=== PATIENT | female | born 1995 | race American Indian/Alaskan Native ===

== ENCOUNTER 2018-06-10 03:34 | Outpatient (CLI) | payer MEDICAID ==
[2018-06-10] MEDS ORDERED: LACTATED RINGERS 1,000 ML ONE (04:50)
[2018-06-10] MEDS ORDERED: LACTATED RINGERS 1,000 ML IV ONE (04:54)
[2018-06-10 04:56] LABS: Bilirubin,Urine NEG (Negative); Blood,Urine NEG (Negative); Color,Urine Yellow (Yellow); Mucus,Urine FEW /HPF; Protein,Urine <15 mg/dL mg/dL (Negative); Urobilinogen,Urine < 2.0 mg/dL (<2.0)
[2018-06-10] MEDS ORDERED: SUBLIMAZE IV PRN (05:08)
--- NOTE | 2018-06-10 06:28 | Ultrasound Report ---
PROCEDURE: US OB >= 14 WK FETUS ADD GEST TECHNIQUE: Transabdominal imaging was obtained of baby Jhon and the diamnionic dichorionic twin pregnan cy. HISTORY: complete OB US include cervical length COMPARISONS: None FINDINGS: Baby A is in cephalic presentation. The amniotic fluid volume is grossly normal. The placenta is ante rior and is grade 1. The heart rate is 172 BPM. There are no gross anomalies involving the chor oid plexus, cisterna magnum, cerebellum or lateral ventricles. The stomach, kidneys, bladder, diaphra gm, four-chamber view the heart heart all appear normal. Only a longitudinal image of the spine was o btained. Axial images cannot be obtained. The estimated sonographic gestational age is 25 weeks 5 day s. The EDC is 09/18/2018. The estimated weight is 803 g. The cervical length is 3.0 cm. IMPRESSION: Cephalic presentation. Estimated gestational age is 25 weeks 5 days as described. No gross anom alies.. This document is electronically signed by Dilip Gregory MD., June 10 2018 06:25:32 AM ET
--- NOTE | 2018-06-10 06:30 | Ultrasound Report ---
PROCEDURE: US OB >= 14 WEEKS FETUS TECHNIQUE: Transabdominal imaging was obtained of a BB in the diamnionic dichorionic twin . HISTORY: complete OB US include cervical length COMPARISONS: None FINDINGS: Baby B is in cephalic presentation. The amniotic fluid volume is normal. The placenta is anterior and is grade 1. The heart rate is 156 BPM. The cervical length is 3.0 cm. The choroid plexus, cist veronica magna, cerebellum and lateral ventricles appear normal. There are no anomalies involving the sto mach, kidneys, bladder, diaphragm, four-chamber heart, three-vessel cord or umbilical cord insertion. The spine is not adequately seen for evaluation. The estimated gestational age is 24 weeks 6 days ba sed on sonographic criteria. The EDC is 09/24/2018 the estimated weight is 750 g. IMPRESSION: Baby B is in cephalic presentation as described. No anomalies.. This document is electronically signed by Dilip Gregory MD., June 10 2018 06:28:16 AM ET
[2018-06-10] MEDS ORDERED: MAGNESIUM SULFATE 4GM/100ML 4 GM/100 ML BAG IV ONE (06:43)
[2018-06-10] MEDS ORDERED: MAGNESIUM SULFATE 40GM/1000ML 40 GM/1,000 ML BAG IV SCH (07:00)
[2018-06-10] MEDS ORDERED: LACTATED RINGERS 1,000 ML IV SCH (07:00)
--- NOTE | 2018-06-10 09:06 | History and Physical Report ---
History of Present Illness Date of examination: 06/10/18 Date of admission: 06/10/18 Chief complaint: contractions History of present illness: This is a 23 yo at 25 weeks came in for contractions. Past History Past Medical History: no pertinent history Past Surgical History: no surgical history Family/Genetic History: none Social history: no significant social history, single. denies: smoking, alcohol abuse, prescription drug abuse - Obstetrical History : 1 Medications and Allergies Allergies Allergy/AdvReac Type Severity Reaction Status Date / Time No Known Allergies Allergy Verified 06/10/18 04:51 Active Meds: Active Medications Fentanyl (Sublimaze) 100 mcg IV Q2H PRN PRN Reason: pain Last Admin: 06/10/18 05:45 Dose: 100 mcg Documented by: Magnesium Sulfate (Magnesium Sulfate 40gm/1000ml) 40 gm in 1,000 mls @ 25 mls/hr IV DIRECT LI Last Admin: 06/10/18 08:00 Dose: 1 gm/hr, 25 mls/hr Documented by: Lactated Ringer's (Lactated Ringers) 1,000 mls @ 75 mls/hr IV DIRECT LI - Vital Signs Vital signs: Vital Signs Temp Pulse Resp BP 98.4 F 81 18 122/67 06/10/18 04:04 06/10/18 04:04 06/10/18 04:04 06/10/18 04:04 Temp Pulse Resp BP Pulse Ox 98.7 F 77 16 124/67 06/10/18 06:31 06/10/18 06:31 06/10/18 06:31 06/10/18 06:31 - Physical Exam Breasts: Positive: normal Cardiovascular: Regular rate, Normal S1 Lungs: Positive: Clear to auscultation, Normal air movement Abdomen: Positive: normal appearance, soft, normal bowel sounds. Negative: distention, tenderness, guarding Genitourinary (Female): Positive: normal external genitalia, normal perenium Vagina: Positive: normal moisture Uterus: Positive: normal size, normal contour Deep Tendon Reflex Grade: Normal +2 - Obstetrical FHR: category 1 Cervical Dilatation: 0 Uterine Contraction Pattern: Regular Uterine Tone Measurement Phase: Resting Results All other labs normal. Assessment and Plan A/P IUP 25 weeks, twins vertex/vertex s/p US cervix 3.1cm on mag- D/c mag as patient is closed FFn neg betamethasone x1 consult Niccu consult MFM [facility]- spoke with paradise will come today
--- NOTE | 2018-06-10 11:40 | Consultation ---
History of Present Illness Reason for consult: other (This is a 23 yo at 25.0 weeks came in for contractions. Patient was placed on MgSo4 and provided steriod for FLM Patient is followed by [facility] for [facility]/DI twins . Last [facility] visit was 06/04/18 cervical shortening of 2.60 cm and was placed on vaginal progesterone . In addition Twin A with EIF and Twin B EIF and mildlly elevated MVP . Today's assessment : Closed cervix with NEGATIVE FFN. MgSO4 was discontinued after SVE assessment with Negative FFN . Steriod of FLM x 1 was given . [facility] US cervical length assessment of 3.0 cm ) Past History Past Medical History: no pertinent history Past Surgical History: no surgical history Family/Genetic History: none - Obstetrical History : 1 Medications and Allergies Allergies Allergy/AdvReac Type Severity Reaction Status Date / Time No Known Allergies Allergy Verified 06/10/18 04:51 Active Meds: Active Medications Fentanyl (Sublimaze) 100 mcg IV Q2H PRN PRN Reason: pain Last Admin: 06/10/18 05:45 Dose: 100 mcg Documented by: Magnesium Sulfate (Magnesium Sulfate 40gm/1000ml) 40 gm in 1,000 mls @ 25 mls /hr IV DIRECT LI Last Admin: 06/10/18 08:00 Dose: 1 gm/hr, 25 mls/hr Documented by: Lactated Ringer's (Lactated Ringers) 1,000 mls @ 75 mls/hr IV DIRECT LI Review of Systems Constitutional: no fever Eyes: normal appearance Ears, nose, mouth and throat: ear pain (being treated for ear infection ) Cardiovascular: no shortness of breath Respiratory: no cough Breasts: deferred Gastrointestinal: no nausea, no vomiting Genitourinary: contractions (no contractions this afternoon ), no vaginal bleeding, no vaginal discharge, no leakage of fluid, no pelvic pain Integumentary: no rash Psychiatric: no anxiety - Vital Signs Vital signs: Vital Signs Temp Pulse Resp BP 98.4 F 81 18 122/67 06/10/18 04:04 06/10/18 04:04 06/10/18 04:04 06/10/18 04:04 Temp Pulse Resp BP Pulse Ox 98.7 F 77 16 124/67 06/10/18 06:31 06/10/18 06:31 06/10/18 06:31 06/10/18 06:31 - Physical Exam Breasts: Positive: deferred Cardiovascular: Regular rate Lungs: Positive: Normal air movement Abdomen: Positive: other (gravid ). Negative: tenderness, guarding Cervix: Positive: other (reported SVE by [facility] -closed and thick ) Uterus: Negative: tender Extremities: Positive: normal Deep Tendon Reflex Grade: Normal +2 - Obstetrical FHR: category 1 (for 25 weeks ) Uterine Contraction Monitor Mode: External Cervical Dilatation: 0 Cervical Effacement Percentage: 0 Uterine Contraction Pattern: Absent (during consultation) Results All other labs normal. Ultrasound: report reviewed (see chart for full report : cervical length of 3.0 cm ) Assessment and Plan A: TIUP @ 25.0 weeks per [facility] 09/23/18 [place]/DI twin gestation 06/04/18 [facility] assessment of cervical shortening of 2.60 cm 06/04/18 [facility] Twin B MVP was mildly elevated 06/04/18 [facility] Twin A and Twin B with EIF NIPT screened Negative 06/10/18 [facility] cervical length assessment of 3.0 cm with amniotic fluid volume normal x 2 06/10/18 [facility] Twin A EFW 803 gms 37% 06/10/18 [facility] Twin B EFW 750 gms 57% contractions early am of 06/10/18 was placed on MgSO4 and started on steroid for FLM Reported SVE per [facility]- Closed and thick FFN- NEGATIVE VTX/VTX P: 0900 Dr. Vila was notified that patient had mild cervical shortening of 2.60 NOT 2 cm dilation . With Negative FFN and reported SVE of closed and thick advised to discontinue MgSO4 however complete steriod for FLM Document negative cultures Consider discharge home with NO sxs of contractions , pelvic pressure, VB and no cervical change Patient to continue previously prescribed vaginal progesterone with close surveillance with [facility] and Primary OB Patient has a follow up appt with [facility] this Friday
[2018-06-10 12:27] VITALS: BP 117/65
== END 2018-06-10 15:00 | disposition home or self-care (01) ==
LOC: EDSTATUS 03:52 → TRG 03:59 → LD 05:23 → TRG 15:00
PROVIDERS: ATTEND Obstetrics & Gynecology
DX: O26.892 Other specified pregnancy related conditions, second trimester (principal); R10.9 Unspecified abdominal pain; H92.09 Otalgia, unspecified ear; O62.9 Abnormality of forces of labor, unspecified; O30.042 Twin pregnancy, dichorionic/diamniotic, second trimester; Z3A.25 25 weeks gestation of pregnancy
CPT/HCPCS: 36415; 76805; 76810; 81001; 82731; 87116; 96374; 96375; 96376; J3010; J3475; J7120; 96361; 96365; 96366; 96368

== ENCOUNTER 2018-06-18 18:28 | Outpatient (CLI) | payer MEDICAID ==
[2018-06-18 18:45] VITALS: BP 128/74
[2018-06-18] MEDS ORDERED: LACTATED RINGERS 500 ML IV ONE (18:45)
[2018-06-18 19:56] LABS: Bacteria,Urine 4+ /HPF (Negative); Bilirubin,Urine NEG (Negative); Blood,Urine NEG (Negative); Color,Urine Yellow (Yellow); Mucus,Urine FEW /HPF; Protein,Urine <15 mg/dL mg/dL (Negative); Urobilinogen,Urine < 2.0 mg/dL (<2.0); WBC,Urine < 1.0 /HPF (0.0-6.0)
== END 2018-06-18 22:10 | disposition home or self-care (01) ==
LOC: TRG 18:28
PROVIDERS: ATTEND Obstetrics & Gynecology
DX: O47.02 False labor before 37 completed weeks of gestation, second trimester (principal); Z3A.26 26 weeks gestation of pregnancy; Z87.891 Personal history of nicotine dependence
CPT/HCPCS: 59025; 81001; 96360; J7120

== ENCOUNTER 2018-07-09 11:20 | Outpatient (CLI) | payer MEDICAID ==
[2018-07-09] MEDS ORDERED: LACTATED RINGERS 500 ML IV ONE (11:41)
[2018-07-09 12:09] LABS: Bilirubin,Urine NEG (Negative); Blood,Urine NEG (Negative); Color,Urine Yellow (Yellow); Hyaline Casts,Urine 1 /LPF; Mucus,Urine FEW /HPF; Protein,Urine <15 mg/dL mg/dL (Negative); Urobilinogen,Urine < 2.0 mg/dL (<2.0); WBC,Urine < 1.0 /HPF (0.0-6.0)
[2018-07-09 13:16] VITALS: BP 118/57
[2018-07-09] MEDS ORDERED: CELESTONE SOLUSPAN IM SCH (14:00)
[2018-07-09] MEDS ORDERED: LACTATED RINGERS 1,000 ML ONE (14:50)
--- NOTE | 2018-07-09 17:22 | Ultrasound Report ---
PROCEDURE: US OB TRANSVAGINAL HISTORY: cervical lenght FINDINGS: Real-time ultrasound of the pelvis was performed with attention to the cervix. Cervical reza gth was 1.6 cm. IMPRESSION: Cervical length 1.6 cm This document is electronically signed by Ion Fontanez MD., July 09 2018 05:20:27 PM ET
--- NOTE | 2018-07-10 07:31 | Ultrasound Report ---
PROCEDURE: US OB LIMITED TECHNIQUE: Real-time limited sonographic examination was performed for evaluation of for each fetus with image documentation (1 or more fetuses). HISTORY: cervical length COMPARISONS: None . FINDINGS: The cervix measures 1.6 cm in length. There are twin pregnancies. Fetus A is in cephalic presentation. Heart rate is 160 bpm. Fetus B is in transverse presentation. Heart rate is 158 bpm. IMPRESSION: Cervix is 1.6 cm in length. This document is electronically signed by Kenn Dove MD., July 10 2018 07:28:23 AM ET
== END 2018-07-09 16:53 | disposition home or self-care (01) ==
LOC: TRG 11:20
PROVIDERS: ATTEND Obstetrics & Gynecology
DX: O47.03 False labor before 37 completed weeks of gestation, third trimester (principal); O32.2XX2 Maternal care for transverse and oblique lie, fetus 2; O30.003 Twin pregnancy, unspecified number of placenta and unspecified number of amniotic sacs, third trimester; Z3A.29 29 weeks gestation of pregnancy
CPT/HCPCS: 36415; 76815; 76817; 81001; 82731; 82962; 87086; 96360; J7120; J0702

== ENCOUNTER 2018-07-12 01:36 | Inpatient (IN) | payer MEDICAID ==
[2018-07-12] MEDS ORDERED: LACTATED RINGERS 500 ML IV ONE (02:25)
[2018-07-12] MEDS ORDERED: AMBIEN PO PRN (03:22)
[2018-07-12] MEDS ORDERED: MAGNESIUM SULFATE 4GM/100ML 4 GM/100 ML BAG IV ONE (03:38)
[2018-07-12] MEDS ORDERED: MAGNESIUM SULFATE 40GM/1000ML 40 GM/1,000 ML BAG IV SCH (04:00)
[2018-07-12 04:22] LABS: Basophils % (Auto) 0.2 % (0.0-1.8); Eosinophils # (Auto) 0.1 K/mm3 (0.0-0.4); Eosinophils % (Auto) 0.5 % (0.0-4.3); Hematocrit 32.3 % (30.3-42.9); Lymphocytes # (Auto) 2.7 K/mm3 (1.2-5.4); Lymphocytes % (Auto) 25.5 % (13.4-35.0); Mean Corpuscular HGB Conc 34 % (30-34); Mean Corpuscular Volume 93 fl (79-97); Monocytes % (Auto) 9.3 % (0.0-7.3); Platelet Count 214 K/mm3 (140-440); Red Blood Count 3.47 M/mm3 (3.65-5.03)
[2018-07-12] MEDS: CELESTONE SOLUSPAN IM SCH (04:23)
--- NOTE | 2018-07-12 10:09 | History and Physical Report ---
History of Present Illness Date of examination: 07/12/18 Date of admission: 07/12/18 03:58 Chief complaint: Contractions History of present illness: Pt is a 23 year old with a twin IUP at 29 weeks. Pt states she has had issues with PTL and was admitted at [facility] for monitoring in April. records are not available for review. Per the patient her cervix was closed on the 09 of July, but she is now reported to be 3 cm Past History Past Medical History: no pertinent history Past Surgical History: no surgical history - Obstetrical History Expected Date of Delivery: 09/21/18 Actual Gestation: 29 Week(s) 6 Day(s) : 1 Medications and Allergies Allergies Allergy/AdvReac Type Severity Reaction Status Date / Time No Known Allergies Allergy Verified 06/10/18 04:51 Active Meds: Active Medications Betamethasone Acet/Betameth SodPhos (Celestone Soluspan) 12 mg IM Q24H LI Stop: 07/13/18 04:01 Last Admin: 07/12/18 04:23 Dose: 12 mg Documented by: Magnesium Sulfate (Magnesium Sulfate 40gm/1000ml) 40 gm in 1,000 mls @ 50 mls/hr IV DIRECT LI Last Admin: 07/12/18 05:21 Dose: 2 gm/hr, 50 mls/hr Documented by: Multivitamins/Iron/Calcium ( Vitamin) 1 each PO QDAY LI Zolpidem Tartrate (Ambien) 10 mg PO QHS PRN PRN Reason: Insomnia Review of Systems All systems: negative Genitourinary: contractions - Vital Signs Vital signs: Vital Signs Pulse BP 86 115/70 07/12/18 02:12 07/12/18 02:12 Temp Pulse Resp BP Pulse Ox 97.6 F 115 H 20 92/51 98 07/12/18 08:29 07/12/18 10:01 07/12/18 08:29 07/12/18 09:57 07/12/18 10:01 - Physical Exam Breasts: Cardiovascular: Regular rate, Normal S1, Normal S2 Abdomen: Positive: normal appearance, soft, normal bowel sounds. Negative: distention, tenderness Genitourinary (Female): Positive: normal external genitalia Vulva: both: normal Vagina: Positive: normal moisture. Negative: discharge Cervix: Negative: lesion, discharge Uterus: Positive: normal size, normal contour Adnexa: both: normal Anus/Rectum: Positive: normal perianal skin, heme negative. Negative: rectal mass, hemorrhoids Extremities: Deep Tendon Reflex Grade: Normal +2 - Obstetrical FHR: auscultation normal Cervical Dilatation: 3 Cervical Effacement Percentage: 60 station: 2 Uterine Contraction Pattern: Absent Uterine Contraction Intensity: Mild Results Result Diagrams: 07/12/18 03:56 Abnormal lab results 07/12/18 Range/Units 03:56 RBC 3.47 L (3.65-5.03) M/mm3 RDW 13.0 L (13.2-15.2) % [place] % (Auto) 9.3 H (0.0-7.3) % [place] # 1.0 H (0.0-0.8) K/mm3 All other labs normal. Assessment and Plan Twin IUP at 29 weeks. Will start magnesium and order steroids. Will order ultrasound to check for position of fetuses.
[2018-07-12] MEDS: PRENATAL VITAMIN PO SCH (10:25)
--- NOTE | 2018-07-12 13:37 | Ultrasound Report ---
PROCEDURE: US OB LIMITED HISTORY: positon for twin FINDINGS: Real-time ultrasound of the pelvis was performed with attention to the gravid uterus. There is a twin gestation. Twin A is posterior to the cervix and lies in cephalic lie. Twin A has fet al cardiac activity of 137 beats per minute. Twin B is in breech lie and has cardiac activity of 123 bpm. IMPRESSION: Live twin gestation This document is electronically signed by Ion Fontanez MD., July 12 2018 01:34:51 PM ET
[2018-07-12] MEDS ORDERED: LACTATED RINGERS 1,000 ML ONE (14:50)
[2018-07-12] MEDS ORDERED: LACTATED RINGERS 1,000 ML IV SCH (19:00)
[2018-07-13] MEDS ORDERED: LACTATED RINGERS 1,000 ML ONE (01:20)
[2018-07-13] MEDS: CELESTONE SOLUSPAN IM SCH (04:48)
--- NOTE | 2018-07-13 08:25 | Progress Note ---
Assessment and Plan - Patient Problems (1) labor Current Visit: Yes Status: Acute Plan to address problem: discontinue magnesium (2) Twin Current Visit: Yes Status: Acute Subjective - Subjective Date of service: 07/13/18 Interval history: Patient admitted for labor and twin gestation. She is s/p steroids and 24 hours of magnesium. She is currently without complaints. Patient reports: no new complaints, no loss of fluid, no contractions Objective - Vital Signs Vital Signs: Vital Signs - 12hr 07/12/18 07/12/18 07/12/18 20:29 22:29 23:23 Temperature Pulse Rate 104 H 88 93 H Respiratory Rate Blood Pressure 118/56 120/55 108/50 Blood Pressure [Right] O2 Sat by Pulse Oximetry 07/13/18 07/13/18 07/13/18 01:28 01:31 04:39 Temperature 98.2 F Pulse Rate 93 H 105 H Respiratory 18 Rate Blood Pressure 119/52 119/56 Blood Pressure 119/52 [Right] O2 Sat by Pulse Oximetry 07/13/18 07/13/18 07/13/18 05:30 05:48 05:53 Temperature 96.9 F L Pulse Rate 82 99 H Respiratory Rate Blood Pressure 106/58 Blood Pressure [Right] O2 Sat by Pulse 99 Oximetry 07/13/18 07/13/18 07/13/18 05:58 06:03 06:08 Temperature Pulse Rate 87 92 H 99 H Respiratory Rate Blood Pressure Blood Pressure [Right] O2 Sat by Pulse 99 100 99 Oximetry 07/13/18 07/13/18 07/13/18 06:13 06:18 06:23 Temperature Pulse Rate 90 90 81 Respiratory Rate Blood Pressure Blood Pressure [Right] O2 Sat by Pulse 99 99 100 Oximetry 07/13/18 07/13/18 07/13/18 06:28 06:33 06:38 Temperature Pulse Rate 102 H 75 77 Respiratory Rate Blood Pressure Blood Pressure [Right] O2 Sat by Pulse 100 98 97 Oximetry 07/13/18 07/13/18 07/13/18 06:43 06:48 06:53 Temperature Pulse Rate 83 82 83 Respiratory Rate Blood Pressure 95/54 Blood Pressure [Right] O2 Sat by Pulse 97 97 97 Oximetry 07/13/18 07/13/18 07/13/18 06:58 07:03 07:08 Temperature Pulse Rate 98 H 81 78 Respiratory Rate Blood Pressure Blood Pressure [Right] O2 Sat by Pulse 98 97 98 Oximetry 07/13/18 07/13/18 07/13/18 07:13 07:18 07:23 Temperature Pulse Rate 84 85 85 Respiratory Rate Blood Pressure Blood Pressure [Right] O2 Sat by Pulse 98 98 98 Oximetry 07/13/18 07/13/18 07/13/18 07:28 07:33 07:38 Temperature Pulse Rate 94 H 88 87 Respiratory Rate Blood Pressure Blood Pressure [Right] O2 Sat by Pulse 98 98 97 Oximetry 07/13/18 07/13/18 07/13/18 07:43 07:48 07:49 Temperature Pulse Rate 88 99 H 97 H Respiratory Rate Blood Pressure 109/66 Blood Pressure [Right] O2 Sat by Pulse 97 99 Oximetry 07/13/18 07/13/18 07/13/18 07:53 07:58 08:03 Temperature Pulse Rate 97 H 103 H 85 Respiratory Rate Blood Pressure Blood Pressure [Right] O2 Sat by Pulse 99 99 99 Oximetry 07/13/18 07/13/18 07/13/18 08:08 08:13 08:18 Temperature Pulse Rate 86 88 91 H Respiratory Rate Blood Pressure Blood Pressure [Right] O2 Sat by Pulse 98 98 98 Oximetry - Labs Labs: Abnormal Labs 07/12/18 07/12/18 03:56 12:32 RBC 3.47 L RDW 13.0 L [place] % (Auto) 9.3 H [place] # 1.0 H Magnesium 4.40 H Laboratory Results - last 24 hr 07/12/18 07/12/18 07/12/18 03:56 03:56 12:32 Magnesium 4.40 H RPR Nonreactive Blood Type O POSITIVE Antibody Screen Negative
[2018-07-13] MEDS: PROCARDIA*For Tocolysis only PO SCH ×3 (10:35→21:50)
[2018-07-13] MEDS: PRENATAL VITAMIN PO SCH (10:36)
--- NOTE | 2018-07-13 15:16 | Consultation ---
Consult Note - Parent Education I met with parent(s) and discussed the following:: Need for NICU admission, Poss ible need for intubation and surfactant or other resp support, Temperature regulation, Head ultrasounds to evaluate IVH, Eye exams for ROP screening, Possible need for IV fluids/TPN and IV antibiotics, Possible need for umbilical lines, Importance of providing breast milk & encouraged pumping aft delivery, Donor breast milk if baby meets criteria after , Slow feeding advancement and monitoring of tolerance. NG/OG feeds, Data for survival & survival without significant co-morbidities Parent(s) demonstrated understanding of all the information:: Yes Additional Comment: 23 year old with twin gestation at 30 weeks admitted with suspected labor, s/p Mag and steroids Assessment and Plan - Assessment Gestation:: 30 (weeks) Baby's gender: Female (X2) - Plan Plan: Agree with Mag & steroids Will attend delivery Please call NICU with questions
[2018-07-14 08:04] VITALS: BP 106/54
--- NOTE | 2018-07-14 08:32 | Progress Note ---
Assessment and Plan - Patient Problems (1) labor Current Visit: Yes Status: Acute Plan to address problem: remains clinically stable will continue with outpatient management bedrest at home (2) Twin Current Visit: Yes Status: Acute Subjective - Subjective Date of service: 07/14/18 Interval history: Patient has intermittent pressure. Contractions are irregular. Pain is improved. Denies leakage of fluid. Patient reports: no new complaints, no loss of fluid, no contractions Objective - Vital Signs Vital Signs: Vital Signs - 12hr 07/13/18 07/13/18 07/14/18 23:22 23:23 04:06 Temperature 97.7 F 98.0 F Pulse Rate 80 80 84 Respiratory 18 18 Rate Blood Pressure 113/54 Blood Pressure 113/54 104/51 [Right] O2 Sat by Pulse 98 Oximetry 07/14/18 07/14/18 04:07 08:03 Temperature Pulse Rate 84 111 H Respiratory Rate Blood Pressure 104/51 106/54 Blood Pressure [Right] O2 Sat by Pulse Oximetry - Labs Labs: Abnormal Labs 07/12/18 07/12/18 03:56 12:32 RBC 3.47 L RDW 13.0 L [place] % (Auto) 9.3 H [place] # 1.0 H Magnesium 4.40 H
--- NOTE | 2018-07-14 08:34 | Discharge Summary ---
Providers - Providers Date of Admission: 07/13/18 17:09 Date of discharge: 07/14/18 Attending physician: JAAYSHREE GRECO MD Primary care physician: JAYASHREE GRECO MD Hospitalization Reason for admission: labor Discharge diagnosis: other Hospital course: Patient admitted for labor with twin gestation. She received magnesium and steroids. Had stabilization of cervix of 3cm. Patient discharged home on bedrest Condition at discharge: Good Disposition: DC-[id number] TO HOME OR SELFCARE - Discharge Diagnoses (1) labor Status: Acute (2) Twin Status: Acute Plan - Provider Discharge Summary Activity: no sex for 6 weeks, no heavy lifting 4 weeks, no strenuous exercise Diet: routine Instructions: routine Additional instructions: [] Smoking cessation referral if applicable(refer to patient education folder for contact #) [] Refer to [facility] Booklet Call your doctor immediately for: * Fever > 100.5 * Heavy vaginal bleeding ( >1 pad per hour) * Severe persistent headache * Shortness of breath * Reddened, hot, painful area to leg or breast * schedule followup in one week - Follow up plan Follow up: JAYASHREE GRECO MD [Primary Care Provider] - 7 Days
== END 2018-07-14 11:00 | disposition home or self-care (01) | DRG 782 ==
LOC: TRG 01:36 → LD 03:58 → TRG 03:58 → OBSVTOIN 07-13 17:09
PROVIDERS: ADMIT Obstetrics & Gynecology; ATTEND Obstetrics & Gynecology
DX: O30.003 Twin pregnancy, unspecified number of placenta and unspecified number of amniotic sacs, third trimester (principal); O60.03 Preterm labor without delivery, third trimester; Z3A.29 29 weeks gestation of pregnancy
CPT/HCPCS: 36415; 76815; 83735; 85025; 86592; 86850; 86900; 86901; G0378; J0702; J3475; J7120

== ENCOUNTER 2018-07-27 12:46 | Outpatient (CLI) | payer MEDICAID ==
[2018-07-27 13:32] VITALS: BP 114/78
== END 2018-07-27 14:07 | disposition home or self-care (01) ==
LOC: TRG 12:46
PROVIDERS: ATTEND Obstetrics & Gynecology
DX: O47.03 False labor before 37 completed weeks of gestation, third trimester (principal); Z3A.32 32 weeks gestation of pregnancy
CPT/HCPCS: 59025

== ENCOUNTER 2018-08-09 07:12 | Outpatient (CLI) | payer MEDICAID ==
[2018-08-09] MEDS ORDERED: LACTATED RINGERS 1,000 ML IV ONE (09:37)
[2018-08-09 11:38] VITALS: BP 106/72
== END 2018-08-09 11:49 | disposition home or self-care (01) ==
LOC: TRG 07:12
PROVIDERS: ATTEND Obstetrics & Gynecology
DX: O62.9 Abnormality of forces of labor, unspecified (principal); O26.893 Other specified pregnancy related conditions, third trimester; O30.003 Twin pregnancy, unspecified number of placenta and unspecified number of amniotic sacs, third trimester; Z3A.33 33 weeks gestation of pregnancy
CPT/HCPCS: 59025; 96360; J7120

== ENCOUNTER 2018-08-15 16:48 | Inpatient (IN) | payer MEDICAID ==
[2018-08-15] MEDS ORDERED: MAGNESIUM SULFATE 4GM/100ML 4 GM/100 ML BAG IV ONE (18:07)
[2018-08-15] MEDS ORDERED: MAGNESIUM SULFATE 40GM/1000ML 40 GM/1,000 ML BAG IV ONE (18:09)
[2018-08-15] MEDS ORDERED: MAGNESIUM SULFATE 4GM/100ML 4 GM/100 ML BAG IV SCH (18:30)
[2018-08-15] MEDS ORDERED: TYLENOL PO PRN (18:31)
[2018-08-15] MEDS ORDERED: COLACE PO PRN (18:31)
[2018-08-15] MEDS ORDERED: CELESTONE SOLUSPAN IM SCH ×2 (19:00)
[2018-08-15] MEDS ORDERED: MAGNESIUM SULFATE 40GM/1000ML 40 GM/1,000 ML BAG IV SCH ×2 (19:00)
[2018-08-15] MEDS ORDERED: LACTATED RINGERS 1,000 ML IV SCH (19:00)
[2018-08-15] MEDS ORDERED: AMPICILLIN/NS 2 GM/100 ML 2 GM/100 ML BAG IV ONE (20:15)
[2018-08-15] MEDS ORDERED: STADOL IV PRN (20:15)
--- NOTE | 2018-08-15 21:18 | Ultrasound Report ---
PROCEDURE: US OB LIMITED TECHNIQUE: Real-time limited sonographic examination was performed for evaluation of position and amniotic fluid index for each fetus with image documentation (1 or more fetuses). HISTORY: KEESHA and presentation COMPARISONS: None . FINDINGS: Twin intrauterine gestation is identified FETUS A: Position: Cephalic . Amniotic fluid volume: Normal. Largest vertical pocket is 2.1 cm. Heart rate and rhythm: 150 BPM, Regular . FETUS B: Position: Transverse with head to maternal left . Amniotic fluid volume: Normal. Largest vertical pocket is 4.7 cm. Heart rate and rhythm: 155 BPM, Regular . IMPRESSION: Twin intrauterine gestation as described above. This document is electronically signed by Cedric Del Rio MD., Aug 15 2018 09:15:51 PM ET
--- NOTE | 2018-08-15 21:18 | Ultrasound Report ---
PROCEDURE: US OB BPP WO NON-STRESS TECHNIQUE: Sonographic evaluation for breathing, movement, tone, and amniotic flui d volume was performed. HISTORY: labor with twins COMPARISONS: None . FINDINGS: FETUS A: Amniotic fluid volume Normal-score 2. At least one vertical pocket >2 cm or more in vertical axis . breathing: Normal-score 2 . movement: Normal-score 2 . tone: Normal-score 2 . Score: 8 of 8 . IMPRESSION: Fetus A: Normal biophysical profile . This document is electronically signed by Cedric Del Rio MD., Aug 15 2018 09:17:01 PM ET
--- NOTE | 2018-08-15 21:20 | Ultrasound Report ---
PROCEDURE: US OB BPP EA ADD EXAM TECHNIQUE: Sonographic evaluation for breathing, movement, tone, and amniotic flui d volume was performed. HISTORY: ptl COMPARISONS: None . FINDINGS: FETUS B: Amniotic fluid volume Normal-score 2. At least one vertical pocket >2 cm or more in vertical axis . breathing: Normal-score 2 . movement: Normal-score 2 . tone: Normal-score 2 . Score: 8 of 8 . IMPRESSION: Fetus B: Normal biophysical profile . This document is electronically signed by Cedric Del Rio MD., Aug 15 2018 09:18:03 PM ET
--- NOTE | 2018-08-15 23:35 | History and Physical Report ---
History of Present Illness Date of examination: 08/15/18 Date of admission: 08/15/18 18:47 Chief complaint: contractions History of present illness: This is a 23 yo G 1 P 0 at 34+3 weeks here for contractions. She has been admitted several weeks ago for labor noted to be stable and discharged after mag and steroids. She c/o contractions and noted to be 4cm from 3cm several weeks ago and fariha. She has been seen by M following for mono di twins. Presentations vertex, breech. Past History Past Medical History: no pertinent history Past Surgical History: no surgical history Family/Genetic History: none Social history: . denies: smoking, alcohol abuse, prescription drug abuse - Obstetrical History Expected Date of Delivery: 09/21/18 Actual Gestation: 34 Week(s) 6 Day(s) : 1 Para: 0 Hx # Term Pregnancies: 0 Number of Pregnancies: 0 Spontaneous Abortions: 0 Induced : 0 Number of Living Children: 0 Medications and Allergies Allergies Allergy/AdvReac Type Severity Reaction Status Date / Time Latex, Natural Rubber AdvReac Unknown Verified 07/27/18 13:53 Active Meds: Active Medications Acetaminophen (Tylenol) 650 mg PO Q4H PRN PRN Reason: Pain MILD(1-3)/Fever >100.5/PACHECO Betamethasone Acet/Betameth SodPhos (Celestone Soluspan) 12 mg IM Q24H LI Stop: 08/16/18 19:01 Butorphanol Tartrate (Stadol) 2 mg IV Q2H PRN PRN Reason: Labor Pain Docusate Sodium (Colace) 100 mg PO Q12H PRN PRN Reason: Constipation Magnesium Sulfate (Magnesium Sulfate 40gm/1000ml) 40 gm in 1,000 mls @ 50 mls/hr IV DIRECT LI Last Admin: 08/15/18 18:57 Dose: 2 gm/hr, 50 mls/hr Documented by: Lactated Ringer's (Lactated Ringers) 1,000 mls @ 125 mls/hr IV DIRECT LI Last Admin: 08/15/18 18:57 Dose: 75 mls/hr Documented by: Magnesium Sulfate (Magnesium Sulfate 4gm/100ml) 4 gm in 100 mls @ 400 mls/hr IV ONCE LI Ampicillin Sodium (Ampicillin/Ns 1 Gm/50 Ml) 1 gm in 50 mls @ 100 mls/hr IV Q4HR LI; Protocol Multivitamins/Iron/Calcium ( Vitamin) 1 each PO QDAY LI Review of Systems All systems: negative Genitourinary: contractions - Vital Signs Vital signs: Vital Signs Pulse BP 85 120/90 08/15/18 17:28 08/15/18 17:28 Temp Pulse Resp BP Pulse Ox 80 121/72 98 08/15/18 23:03 08/15/18 23:03 08/15/18 21:40 - Physical Exam Breasts: Positive: normal Cardiovascular: Regular rate, Normal S1 Lungs: Positive: Clear to auscultation, Normal air movement Abdomen: Positive: normal appearance, soft, normal bowel sounds. Negative: distention, tenderness, guarding Genitourinary (Female): Positive: normal external genitalia, normal perenium Vulva: both: normal Vagina: Positive: normal moisture Uterus: Positive: normal size Anus/Rectum: Positive: normal perianal skin Extremities: Positive: normal - Obstetrical FHR: category 1 Cervical Dilatation: 4 Cervical Effacement Percentage: 60 station: -2 Uterine Contraction Pattern: Irregular Uterine Tone Measurement Phase: Contraction Uterine Contraction Intensity: Mild Results All other labs normal. Ultrasound: pending Assessment and Plan A/P IUP 34+3 weeks [place] di twins vertex, breech spoke with MFM recommended IVF observation d/c mag if active labor MFM recommends delivery close monitor of fetuses and maternal status
[2018-08-15] MEDS ORDERED: REGLAN ONE (23:38)
[2018-08-15] MEDS ORDERED: BICITRA ONE (23:38)
[2018-08-15] MEDS ORDERED: PEPCID IV ONE (23:39)
[2018-08-15] MEDS ORDERED: PITOCin/NS 20 UNIT/1000ML DRIP 20,000 MILLIUNITS/1,000 ML BAG IV ONE (23:39)
[2018-08-15] MEDS ORDERED: DIPRIVAN 10 MG/ML IV ONE (23:45)
[2018-08-15] MEDS ORDERED: WATER FOR IRRIG STERILE IR ONE (23:48)
[2018-08-15] MEDS ORDERED: NACL 0.9% IR ONE (23:48)
[2018-08-15] MEDS ORDERED: METHERGINE IM ONE ×2 (23:56)
[2018-08-15] MEDS ORDERED: SUBLIMAZE ONE (23:58)
[2018-08-16] MEDS ORDERED: AMPICILLIN/NS 1 GM/50 ML 1 GM/50 ML BAG IV SCH
[2018-08-16] MEDS ORDERED: SUBLIMAZE ONE (00:15)
[2018-08-16] MEDS ORDERED: PITOCin/NS 20 UNIT/1000ML DRIP 20,000 MILLIUNITS/1,000 ML BAG IV ONE (00:33)
[2018-08-16] MEDS ORDERED: ZOFRAN IV PRN ×2 (00:43→00:55)
[2018-08-16] MEDS ORDERED: ANUCORT-HC PR PRN (00:43)
[2018-08-16] MEDS ORDERED: PEPCID IV ONE (00:43)
[2018-08-16] MEDS ORDERED: TUCKS PAD TP PRN (00:43)
[2018-08-16] MEDS ORDERED: MORPHINE IV PRN ×2 (00:43)
[2018-08-16] MEDS ORDERED: NARCAN 0.4 MG/1 ML IV PRN ×2 (00:43→00:55)
[2018-08-16] MEDS ORDERED: LANSINOH TP PRN (00:43)
[2018-08-16] MEDS ORDERED: TORADOL IV PRN ×3 (00:43→00:55)
[2018-08-16] MEDS ORDERED: PHENERGAN PR PRN (00:43)
[2018-08-16] MEDS ORDERED: MYLICON PO PRN (00:43)
[2018-08-16] MEDS ORDERED: SENOKOT PO PRN (00:43)
[2018-08-16] MEDS ORDERED: BICITRA PO ONE (00:43)
[2018-08-16] MEDS ORDERED: NORCO 5/325 PO PRN (00:43)
[2018-08-16] MEDS ORDERED: REGLAN IV ONE (00:43)
[2018-08-16] MEDS ORDERED: MILK OF MAGNESIA PO PRN (00:43)
[2018-08-16] MEDS ORDERED: ZOFRAN ONE (00:45)
--- NOTE | 2018-08-16 00:50 | Event Note ---
Date: 08/16/18 Patient was admitted for labor and upon observing monitor there was a bradycardia epidsode of . At this time we called for emergency csec. Discussed r/b/ a which include bleeding infection, damage to pelvic and non pelvic organs risk of hysterectomy and
--- NOTE | 2018-08-16 00:52 | Procedure Note ---
OB Delivery Note - Delivery Date of Delivery: 08/16/18 Surgeon: JAYASHREE GRECO Estimated blood loss: other (1200cc) - Section Preop diagnosis: nonreassuring FHR tracing Postop diagnosis: same section procedure: section, primary low transverse Disposition: PACU Complications: none Narrative: see op note - A at 1 minute: 8 at 5 minutes: 9 Infant Gender: Female B at 1 minute: 7 at 5 minutes: 9 Infant Gender: Female
--- NOTE | 2018-08-16 00:54 | Post Anesthesia Evaluation ---
- Post Anesthesia Evaluation Patient Participated: Yes Airway Patent: Yes Stable Respiratory Function: Yes Nausea/Vomiting: No Temp > 96.8F: Yes Pain Manageable: Yes Adequeate Hydration: Yes Anesthesia Complications: No Block Receding Appropriately: Not Applicable Patient on Ventilator: No Other Comments: Explained to patient expected postoperative course from major abdominal surgery. Patient states understanding that OBGYN will manage pain control on floor. Patient appears comfortable and in no acute distress. VSS.
[2018-08-16] MEDS ORDERED: DEMEROL IV PRN (00:55)
[2018-08-16] MEDS ORDERED: LACTATED RINGERS 1,000 ML IV SCH (01:00)
[2018-08-16] MEDS: DILAUDID IV PRN ×2 (01:00→01:35)
[2018-08-16] MEDS ORDERED: PITOCin/NS 20 UNIT/1000ML DRIP 20 UNITS/1,000 ML BAG IV SCH ×2 (01:00)
[2018-08-16] MEDS ORDERED: SODIUM CHLORIDE FLUSH SYRINGE 10 ML IV PRN (01:00)
[2018-08-16] MEDS ORDERED: ANCEF/STERILE WATER 2 GM/20 ML 2 GM/20 ML SYRINGE IV NR (01:00)
--- NOTE | 2018-08-16 01:00 | Operative Report ---
Operative Report Operative Report: Date of procedure: August 15, 2018 Preoperative diagnosis: 1) IUP at 34+6 weeks 2) Monodi twins 3) labor 4) NRFHT Postoperative diagnosis: Same + nucahal cord on twin B Procedure: 1) Primary Surgeon:Susie Vila MD Anesthesia: General Findings: 1) Viable female , Apgars 8 and 9, weight 2028g in cephalic presentation 2) Viable female , Apgars 7 and 9. weight 2031g in breech presentation 2) Normal-appearing uterus ovaries and tubes Estimated blood loss: 1200 mL IV fluids: 1500 cc Urine output: 200 mL, clear at the end of the procedure Drains: [place] to gravity Specimens: Placenta to pathology Complications: None. Counts correct x 3 Disposition: Stable to PACU Indication for procedure: Patient is a 23-year-old at 34+6 weeks 3 days with mono di twins. Patient came in with contractions and assess for labor. At the time she was 5cm. Upon observation of monitoring twin had a kvng epidosde and emergency csec was promptly called Operation in detail: After the risks, benefits, alternatives and complications were explained to the patient she gave informed consent for the procedure. She was subsequently taken to the operating room where regional anesthesia was noted to be adequate. She was subsequently placed in the dorsal supine position with leftward tilt and prepped and draped in a normal sterile fashion. heart tones were noted to be in the 170s prior to incision for both twins . A timeout was performed. A Pfannenstiel skin incision was made with the knife and carried down to the layer of the fascia with the Bovie. The fascia was incised in the midline and the fascial incision was extended bilaterally with the Bovie. Attention was then turned to the superior aspect of the incision which was grasped with two Kochers, tented up, and dissected off the rectus muscles. Attention was then turned to the inferior aspect of the incision which was grasped with two Kochers, tented up and dissected off the rectus muscles. The rectus muscles were then in the midline and partially transected for adequate visualization. The peritoneum was then entered bluntly. The peritoneal incision was extended with good visualization of the bladder. The peritoneal incision was then stretched. The bladder blade was placed. The vesicouterine peritoneum was grasped with smooth pickups and incised with Metzenbaum scissors. Metzenbaum scissors were used to extend the incision bilaterally. The bladder flap was then created digitally and the bladder blade was replaced. A transverse incision was made in the lower uterine segment with a knife and extended bilaterally with the bandage scissors. The head was delivered without difficulty followed by shoulders and body. was bulb suctioned at delivery. The cord was clamped and cut and the was handed to NICU staff in attendance. Twin B delivered after the arom clear and double breech grasped and delivered and easily delivered. Cord blood was collected. The placenta was then delivered manually. The uterus was then exteriorized and cleared of all clots and debris. The hysterotomy was then reapproximated with 0 Vicryl in a running locked fashion. A second layer of the same suture was used in imbricating fashion. Additional [id number] 0 Vicryl were used to obtain hemostasis. The hysterotomy was inspected and hemostasis was noted. The uterus was returned to the peritoneal cavity and the gutters were irrigated and cleared of all clots and debris. The hysterotomy was again inspected and noted to be hemostatic. Surgicel was placed over the hysterotomy. . The peritoneum was reapproximated with 2-0 Vicryl in a running fashion incorporating the rectus muscles. The fascia was reapproximated with 0 Vicryl in a running fashion. The subcutaneous tissue was reapproximated with 3-0 Vicryl in a running fashion The skin was reapproximated with 4-0 Vicryl in a subcuticular fashion. The incision was then covered with steri strips and a pressure dressing. The procedure was then ended. The patient tolerated the procedure well and was taken to the PACU in stable condition. All instrument, lap, and needle counts were correct 3.
[2018-08-16 02:34] LABS: Basophils % (Auto) 0.1 % (0.0-1.8); Hematocrit 33.7 % (30.3-42.9); Hemoglobin 11.2 gm/dl (10.1-14.3); Lymphocytes # (Auto) 1.1 K/mm3 (1.2-5.4); Lymphocytes % (Auto) 9.6 % (13.4-35.0); Mean Corpuscular HGB Conc 33 % (30-34); Mean Corpuscular Volume 94 fl (79-97); Monocytes # (Auto) 0.2 K/mm3 (0.0-0.8); Monocytes % (Auto) 1.8 % (0.0-7.3); Platelet Count 196 K/mm3 (140-440); Red Blood Count 3.58 M/mm3 (3.65-5.03); Red Cell Distribution Width 13.3 % (13.2-15.2)
[2018-08-16] MEDS: PERCOCET 5/325 PO PRN ×2 (03:38→17:54)
[2018-08-16] MEDS ORDERED: D5LR 1,000 ML IV SCH (04:00)
[2018-08-16] MEDS ORDERED: PRENATAL VITAMIN PO SCH (10:00)
[2018-08-16] MEDS: FEOSOL PO SCH (10:15)
[2018-08-16] MEDS: PRENATAL VITAMIN PO SCH (10:15)
[2018-08-16 15:51] LABS: Hematocrit 29.8 % (30.3-42.9); Hemoglobin 9.8 gm/dl (10.1-14.3)
[2018-08-17] MEDS ORDERED: M-M-R II VACCINE SUB-Q ONE (00:44)
[2018-08-17] MEDS: PERCOCET 5/325 PO PRN ×3 (05:23→22:57)
[2018-08-17] MEDS: IBUPROFEN PO PRN ×2 (05:24→22:04)
[2018-08-17] MEDS ORDERED: BOOSTRIX IM ONE (06:00)
--- NOTE | 2018-08-17 09:19 | Progress Note ---
Assessment and Plan A/P POD1 csec for malpresentation of mono di twins doing well routine post op care Subjective - Subjective Date of service: 08/17/18 Principal diagnosis: primary csec for twin cephalic/breech Interval history: This is a 23 yo G 1 P 0 at 34+3 weeks here for contractions. She has been admitted several weeks ago for labor noted to be stable and discharged after mag and steroids. She c/o contractions and noted to be 4cm from 3cm several weeks ago and fariha. She has been seen by MFM following for mono di twins. Presentations vertex, breech. Patient reports: appetite normal, voiding normally, pain well controlled, flatus, ambulating normally [place]: doing well, in NICU (x2) Objective - Vital Signs Latest vital signs: Vital Signs Temp Pulse Resp BP Pulse Ox 08/17/18 01:15 98.0 F 82 20 104/56 97 08/16/18 16:21 98.4 F 89 20 114/79 98 08/16/18 13:02 97.8 F 89 20 105/75 99 Intake and Output 08/16/18 08/17/18 08/17/18 23:59 07:59 15:59 Intake Total 240 Output Total 500 Balance -500 240 Intake: Oral 240 Output: Urine 500 Void 500 Other: Total, Intake Amount 240 Total, Output Amount 500 # Voids Void 1 1 - Exam Breasts: Present: normal Cardiovascular: Present: Regular rate, Normal S1 Lungs: Present: Clear to auscultation, Normal air movement Abdomen: Present: normal appearance, soft, normal bowel sounds. Absent: distention, tenderness, guarding Uterus: Present: normal, firm, fundal height below umbilicus. Absent: bogginess, tenderness Extremities: Present: normal Deep Tendon Reflex Grade: Normal +2 Incision: Present: normal, dry, intact - Labs Labs: Abnormal lab results 08/16/18 Range/Units 14:57 Hgb 9.8 L (10.1-14.3) gm/dl Hct 29.8 L (30.3-42.9) %
[2018-08-17] MEDS: FEOSOL PO SCH (10:59)
[2018-08-17] MEDS: PRENATAL VITAMIN PO SCH (10:59)
[2018-08-18] MEDS: IBUPROFEN PO PRN ×2 (08:27→17:22)
--- NOTE | 2018-08-18 08:27 | Progress Note ---
Assessment and Plan A: POD# 2 s/p primary section at 34 wks secondary to active labor, malpresentation, mono-di twins P: Routine postoperative care. Anticipate discharge tomorrow. Subjective - Subjective Date of service: 08/18/18 Principal diagnosis: primary csec for twin cephalic/breech Interval history: Pt without complaints. Patient reports: appetite normal, voiding normally, pain well controlled, flatus, ambulating normally : in NICU Objective - Vital Signs Latest vital signs: Vital Signs Temp Pulse Resp BP BP Pulse Ox 08/18/18 07:40 98.0 F 71 16 106/55 99 08/18/18 00:47 98.5 F 82 18 112/63 96 08/17/18 08:55 98.2 F 20 118/65 Intake and Output 08/17/18 08/18/18 08/18/18 22:59 06:59 14:59 Intake Total 480 360 Balance 480 360 Intake: Intake, Free Water 480 360 Other: # Voids Void 2 3 # Bowel Movements 1 - Exam Breasts: Present: deferred Cardiovascular: Present: Regular rate Lungs: Present: Clear to auscultation Abdomen: Present: soft Uterus: Present: fundal height below umbilicus Extremities: Present: edema (trace) Incision: Present: intact
[2018-08-18] MEDS: PERCOCET 5/325 PO PRN ×2 (08:28→17:21)
--- NOTE | 2018-08-18 08:33 | Discharge Summary ---
Providers - Providers Date of Admission: 08/15/18 18:47 Date of discharge: 08/19/18 Attending physician: JAYASHREE GRECO MD Primary care physician: JERRELL MARK Hospitalization Reason for admission: active labor Delivery: Procedure: section, primary low transverse Procedure details: Please see operative report. Incision: intact Other procedures: none complications: none Discharge diagnosis: delivery [place] baby: twins Hospital course: Patient was admitted in active labor with mono dye twins and underwent a primary section which she tolerated well. Her postoperative course is uncomplicated and she met discharge criteria on postoperative day #3. She will come to the office in 2 weeks for incision check. Condition at discharge: Stable Disposition: DC- TO HOME OR SELFCARE - Discharge Diagnoses (1) Monochorionic diamniotic twin gestation in third trimester Status: Acute (2) S/P section Status: Acute (3) Obesity (BMI 30.0-34.9) Status: Acute (4) labor Status: Acute Qualifiers: labor trimester: third trimester labor delivery status: with delivery in third trimester (5) Anemia Status: Acute Qualifiers: Anemia type: unspecified type Qualified Code(s): D64.9 - Anemia, unspecified Plan - Discharge Medications Prescriptions: Ferrous Sulfate [Feosol 325 MG tab] 325 mg PO BID #30 tablet Ibuprofen [Motrin] 600 mg PO Q8H PRN #30 tablet PRN Reason: Pain oxyCODONE /ACETAMINOPHEN [Percocet 5/325] 1 tab PO Q6HR PRN #30 tablet PRN Reason: Pain - Provider Discharge Summary Activity: routine, no sex for 6 weeks, no heavy lifting 4 weeks, no strenuous e xercise Diet: routine Instructions: routine Additional instructions: [] Smoking cessation referral if applicable(refer to patient education folder for contact #) [] Refer to [facility] Booklet Call your doctor immediately for: * Fever > 100.5 * Heavy vaginal bleeding ( >1 pad per hour) * Severe persistent headache * Shortness of breath * Reddened, hot, painful area to leg or breast * Drainage or odor from incision. * Keep incision clean and dry at all times and follow doctor's instructions regarding bathing/showering - Follow up plan Follow up: JAYASHREE GRECO MD [Staff Physician] - 08/31/18 (Please call to schedule incision check appt. ) Forms: Discharge Signature Page
[2018-08-18] MEDS: PRENATAL VITAMIN PO SCH (10:05)
[2018-08-18] MEDS: FEOSOL PO SCH (10:05)
[2018-08-19] MEDS: PERCOCET 5/325 PO PRN ×2 (01:41→09:49)
[2018-08-19 08:34] VITALS: BP 106/64
[2018-08-19] MEDS: FEOSOL PO SCH (09:48)
[2018-08-19] MEDS: PRENATAL VITAMIN PO SCH (09:49)
[2018-08-19] MEDS: IBUPROFEN PO PRN (09:52)
== END 2018-08-19 13:50 | disposition home or self-care (01) | DRG 765 ==
LOC: TRG 16:48 → LD 18:11 → TRG 18:45 → LD 18:47 → OB 08-16 02:40
PROVIDERS: ADMIT Obstetrics & Gynecology; ATTEND Obstetrics & Gynecology
PROC: 10D00Z0 Extraction of Products of Conception, High, Open Approach (ICD-10-PCS; principal; 2018-08-16)
PROC: 3E0234Z Introduction of Serum, Toxoid and Vaccine into Muscle, Percutaneous Approach (ICD-10-PCS; 2018-08-17)
DX: O30.033 Twin pregnancy, monochorionic/diamniotic, third trimester (principal); O60.14X2 Preterm labor third trimester with preterm delivery third trimester, fetus 2; O60.14X1 Preterm labor third trimester with preterm delivery third trimester, fetus 1; Z3A.34 34 weeks gestation of pregnancy; O99.89 Other specified diseases and conditions complicating pregnancy, childbirth and the puerperium; O99.214 Obesity complicating childbirth; O76 Abnormality in fetal heart rate and rhythm complicating labor and delivery; E66.9 Obesity, unspecified; R00.1 Bradycardia, unspecified; O69.81X2 Labor and delivery complicated by cord around neck, without compression, fetus 2; O32.1XX2 Maternal care for breech presentation, fetus 2; Z37.2 Twins, both liveborn; Z91.040 Latex allergy status; Z23 Encounter for immunization; O90.81 Anemia of the puerperium; D64.9 Anemia, unspecified
CPT/HCPCS: 36415; 59025; 76815; 76819; 85014; 85018; 85025; 86850; 86900; 86901; 88307; G0378; J0290; J0702; J1170; J1885; J2210; J2270; J2405; J2590; J2704; J2765; J3010; J3475; J7120; J7121

== ENCOUNTER 2018-08-30 05:21 | Emergency (ER) | payer MEDICAID ==
[2018-08-30 05:33] VITALS: BP 117/84
[2018-08-30 05:58] LABS: Basophils # (Auto) 0.1 K/mm3 (0.0-0.1); Basophils % (Auto) 0.7 % (0.0-1.8); Eosinophils # (Auto) 0.1 K/mm3 (0.0-0.4); Eosinophils % (Auto) 1.2 % (0.0-4.3); Hematocrit 32.7 % (30.3-42.9); Hemoglobin 11.1 gm/dl (10.1-14.3); Lymphocytes # (Auto) 3.5 K/mm3 (1.2-5.4); Lymphocytes % (Auto) 38.6 % (13.4-35.0); Mean Corpuscular HGB Conc 34 % (30-34); Mean Corpuscular Volume 92 fl (79-97); Monocytes # (Auto) 0.6 K/mm3 (0.0-0.8); Monocytes % (Auto) 6.6 % (0.0-7.3); Platelet Count 291 K/mm3 (140-440); Red Blood Count 3.54 M/mm3 (3.65-5.03); Red Cell Distribution Width 13.5 % (13.2-15.2)
[2018-08-30 06:02] LABS: Bilirubin,Urine NEG (Negative); Color,Urine Yellow (Yellow); Mucus,Urine 3+ /HPF; Protein,Urine <15 mg/dL mg/dL (Negative); Urobilinogen,Urine < 2.0 mg/dL (<2.0)
[2018-08-30 06:03] LABS: Blood,Urine LG (Negative)
[2018-08-30] MEDS ORDERED: ROCEPHIN IM ONE (06:07)
[2018-08-30] MEDS ORDERED: XYLOCAINE 1% MPF 5 mL INFILTRATI ONE (06:07)
[2018-08-30] MEDS ORDERED: TORADOL IM ONE (06:09)
--- NOTE | 2018-08-30 06:13 | Emergency Department Report ---
ED Abdominal Pain HPI - General Chief Complaint: Abdominal Pain Stated Complaint: ABD PAIN/POST Time Seen by Provider: 08/30/18 05:45 Source: patient Mode of arrival: Ambulatory Limitations: No Limitations - History of Present Illness Initial Comments: Patient is a A0 23-year-old -[place] female who is 2 weeks post for a twin to a suprapubic and presents to the ED with complaint of acute onset persistent severe suprapubic pain for the last 2 hours. Patient states that the pain woke from sleep and got worse progressively. Patient denies dysuria, urinary frequency and urgency, dizziness, nausea, vomiting, diarrhea, low back pain, hematuria or vaginal bleeding, fever or chills, dizziness, cough or shortness of breath and chest pain. Patient states that she usually takes Percocet and ibuprofen at home for pain, and that the last time she took medications was over 8 hours ago. Patient however states that since her delivery she has not had this kind of pain. MD Complaint: abdominal pain -: Sudden, hour(s) (2), This morning Location: suprapubic Radiation: none Migration to: no migration Severity: severe Severity scale (0 -10): 8 Quality: cramping, aching, sharp Consistency: constant Improves With: nothing Worsens With: nothing, movement Associated Symptoms: denies other symptoms. denies: nausea, vomiting, diarrhea, fever, chills, constipation, dysuria, hematemesis, melena, hematuria, anorexia - Related Data Previous Rx's Medication Instructions Recorded Last Taken Type Ferrous Sulfate [Feosol 325 MG tab] 325 mg PO BID #30 tablet 08/16/18 Unknown Rx Ibuprofen [Motrin] 600 mg PO Q8H PRN #30 tablet 08/16/18 Unknown Rx oxyCODONE /ACETAMINOPHEN [Percocet 1 tab PO Q6HR PRN #30 tablet 08/16/18 Unknown Rx 5/325] cephALEXin [Keflex] 500 mg PO Q6HR #40 capsule 08/30/18 Unknown Rx Allergies Allergy/AdvReac Type Severity Reaction Status Date / Time Latex, Natural Rubber AdvReac Unknown Verified 07/27/18 13:53 ED Review of Systems ROS: Stated complaint: ABD PAIN/POST Other details as noted in HPI Comment: All other systems reviewed and negative Constitutional: denies: chills, fever Eyes: denies: eye pain, eye discharge, vision change ENT: denies: ear pain, throat pain Respiratory: denies: cough, shortness of breath, wheezing Cardiovascular: denies: chest pain, palpitations Endocrine: no symptoms reported Gastrointestinal: abdominal pain (suprapubic pain). denies: nausea, diarrhea, constipation, hematemesis, hematochezia Genitourinary: denies: urgency, dysuria, frequency, hematuria, discharge, abnormal menses, dyspareunia Musculoskeletal: denies: back pain, joint swelling, arthralgia Skin: denies: rash, lesions Neurological: denies: headache, weakness, paresthesias Psychiatric: denies: anxiety, depression Hematological/Lymphatic: denies: easy bleeding, easy bruising ED Past Medical Hx - Past Medical History Hx Hypertension: No Hx Congestive Heart Failure: No Hx Diabetes: No Hx Deep Vein Thrombosis: No Hx Renal Disease: No Hx Sickle Cell Disease: No Hx Seizures: No Hx Asthma: No Hx COPD: No Hx HIV: No - Social History Smoking Status: Never Smoker - Medications Home Medications: Home Medications Medication Instructions Recorded Confirmed Last Taken Type Ferrous Sulfate [Feosol 325 MG tab] 325 mg PO BID #30 tablet 08/16/18 Unknown Rx Ibuprofen [Motrin] 600 mg PO Q8H PRN #30 tablet 08/16/18 Unknown Rx oxyCODONE /ACETAMINOPHEN [Percocet 1 tab PO Q6HR PRN #30 tablet 08/16/18 U nknown Rx 5/325] cephALEXin [Keflex] 500 mg PO Q6HR #40 capsule 08/30/18 Unknown Rx ED Physical Exam - General Limitations: No Limitations General appearance: alert, in no apparent distress - Head Head exam: Present: atraumatic, normocephalic, normal inspection - Eye Eye exam: Present: normal appearance, PERRL, EOMI. Absent: scleral icterus, conjunctival injection, nystagmus, periorbital swelling, periorbital tenderness Pupils: Present: normal accommodation - ENT ENT exam: Present: normal exam, normal orophraynx, mucous membranes moist, TM's normal bilaterally, normal external ear exam - Neck Neck exam: Present: normal inspection, full ROM. Absent: tenderness, meningismus, lymphadenopathy, thyromegaly - Respiratory Respiratory exam: Present: normal lung sounds bilaterally. Absent: respiratory distress, wheezes, rales, rhonchi (I), chest wall tenderness, accessory muscle use, decreased breath sounds, prolonged expiratory - Cardiovascular Cardiovascular Exam: Present: regular rate, normal rhythm, normal heart sounds. Absent: systolic murmur, diastolic murmur, rubs, gallop - GI/Abdominal GI/Abdominal exam: Present: soft, tenderness (suprapubic, no guarding or rebound; small wound dehiscence on RLQ area, No sign of infection), normal bowel sounds. Absent: guarding, rebound, hyperactive bowel sounds, hypoactive bowel sounds, organomegaly - Rectal Rectal exam: Present: deferred - Extremities Exam Extremities exam: Present: normal inspection, full ROM, normal capillary refill - Back Exam Back exam: Present: normal inspection, full ROM. Absent: tenderness, muscle spasm, paraspinal tenderness, vertebral tenderness - Neurological Exam Neurological exam: Present: alert, oriented X3, CN II-XII intact, normal gait, reflexes normal - Psychiatric Psychiatric exam: Present: normal affect, normal mood - Skin Skin exam: Present: warm, dry, intact, normal color, other (Small wound dehiscence of the suprapubic surgical site; no erythema, swelling or purulent discharge). Absent: rash ED Course Vital Signs 08/30/18 05:30 Temperature 97.9 F Pulse Rate 94 H Respiratory 18 Rate Blood Pressure 117/84 O2 Sat by Pulse 98 Oximetry - Reevaluation(s) Reevaluation #1: 08/30/18 06:40 Patient is alert and oriented 3 and is not in distress with normal vital signs. Patient was treated for pain in the ED and laboratory results were reviewed an d shows mild urinary tract infection. This allowed us results are unremarkable. Patient was treated also in the ED with Rocephin 1 g intramuscular injection to go with pain medications, and patient discharged home on Keflex 500 mg every 6 hours, and advised to continue taking pain medication that were previously prescribed , and to follow-up with Dr. Vila the [facility] physician in 5-7 days for reevaluation. Patient advised to return to the ED immediately if symptoms get worse. ED Medical Decision Making - Lab Data Result diagrams: 08/30/18 05:43 08/30/18 05:43 - Medical Decision Making Patient is alert and oriented 3 and is not in distress with normal vital signs. Patient was treated for pain in the ED and laboratory results were reviewed and shows mild urinary tract infection. This allowed us results are unremarkable. Patient was treated also in the ED with Rocephin 1 g int ramuscular injection to go with pain medications, and patient discharged home on Keflex 500 mg every 6 hours, and advised to continue taking pain medication that were previously prescribed , and to follow-up with Dr. Vila the [facility] physician in 5-7 days for reevaluation. Patient advised to return to the ED immediately if symptoms get worse. - Differential Diagnosis Wound dehiscence; suprapubic pain, acute UTI Critical care attestation.: If time is entered above; I have spent that time in minutes in the direct care of this critically ill patient, excluding procedure time. ED Disposition Clinical Impression: Acute suprapubic pain, Disruption of wound, , Acute urinary tract infection Disposition: TO HOME OR SELFCARE Is pt being admited?: No Does the pt Need Aspirin: No Condition: Stable Instructions: Urinary Tract Infection in Women (ED), Abdominal Pain (ED), Wound Dehiscence (ED) Additional Instructions: Take medications with food, drink plenty of fluids and follow up with the [facility] physician Dr. Vila in 5-7 days for reevaluation. Return to the ED immediately if symptoms get worse. Otherwise continue taking the pain medications that were recently prescribed in addition to the antibiotics. Prescriptions: cephALEXin [Keflex] 500 mg PO Q6HR #40 capsule Referrals: ABRAN VILA MD [Staff Physician] - 3-5 Days Time of Disposition: 06:43 Print Language: [place]
[2018-08-30 06:21] LABS: Alanine Aminotransferase 36 units/L (7-56); Albumin 3.7 g/dL (3.9-5); BUN/Creatinine Ratio 20; Blood Urea Nitrogen 12 mg/dL (7-17); Calcium 8.9 mg/dL (8.4-10.2); Hemolysis Index 2
== END 2018-08-30 07:15 | disposition home or self-care (01) ==
LOC: ED 05:21
DX: O90.0 Disruption of cesarean delivery wound (principal); O86.20 Urinary tract infection following delivery, unspecified; Z91.040 Latex allergy status
CPT/HCPCS: 36415; 80053; 81001; 84703; 85025; 96372; 99283; J0696; J1885

== ENCOUNTER 2018-09-28 04:51 | Emergency (ER) | payer MEDICAID ==
[2018-09-28] MEDS ORDERED: TORADOL IM ONE (05:15)
[2018-09-28] MEDS ORDERED: FIORICET PO ONE (05:15)
[2018-09-28] MEDS ORDERED: ZOFRAN ODT PO ONE (05:15)
--- NOTE | 2018-09-28 06:22 | Emergency Department Report ---
ED Headache HPI - General Chief Complaint: Headache Stated Complaint: HEADACHE Time Seen by Provider: 09/28/18 05:00 Source: patient Exam Limitations: no limitations - History of Present Illness Initial Comments: Patient is a 23-year-old -[place] female with a history of chronic migraine headaches who presents to the ED with a complaint of acute onset persistent frontal and bitemporal headache with pressure and nausea and blurry vision for the last 4 hours. Patient states that she has not been able to sleep because of persistent severe headache despite taking Motrin for pain. Patient denies change in vision, neck pain, chest pain, shortness of breath, vomiting, sore throat, cough, fever, chills, back pain, abdominal pain or nasal and sinus congestion and syncope. Timing/Duration: 4-6 hours Quality: severe, sharp Head Injury Location: frontal, temporal Recent Head Trauma: no recent headache/trauma, chronic headaches Associated Symptoms: facial pain, nausea/vomiting, sinus infection. denies: confusion, fatigue, fever/chills, flushing, loss of consciousness, nasal congestion, nasal drainage, numbness in legs/feet, rash, seizures, stiff neck, vision changes, weakness Allergies/Adverse Reactions: Allergies Latex, Natural Rubber Adverse Reaction (Verified 07/27/18 13:53) Unknown Pt. states that she experiences a burning sensation without rash or hives Home Medications: Ambulatory Orders Ferrous Sulfate [Feosol 325 MG tab] 325 mg PO BID #30 tablet 08/16/18 Ibuprofen [Motrin] 600 mg PO Q8H PRN #30 tablet 08/16/18 oxyCODONE /ACETAMINOPHEN [Percocet 5/325] 1 tab PO Q6HR PRN #30 tablet 08/16/18 cephALEXin [Keflex] 500 mg PO Q6HR #40 capsule 08/30/18 Amoxicillin [Trimox CAP] 500 mg PO Q8H #30 capsule 09/28/18 Butalb/Acetamin/Caff 50-325-40 [Fioricet 50-325-40] 1 tab PO Q6HR PRN #15 tab 09/28/18 Ketorolac [Toradol] 10 mg PO Q8H PRN #20 tablet 09/28/18 Promethazine [Phenergan] 25 mg PO Q6HR PRN #20 tab 09/28/18 ED Review of Systems ROS: Stated complaint: HEADACHE Other details as noted in HPI Constitutional: denies: chills, fever Eyes: denies: eye pain, eye discharge, vision change ENT: denies: ear pain, throat pain Respiratory: denies: cough, shortness of breath, wheezing Cardiovascular: denies: chest pain, palpitations Endocrine: no symptoms reported Gastrointestinal: nausea. denies: abdominal pain, diarrhea Genitourinary: denies: urgency, dysuria, discharge Musculoskeletal: denies: back pain, joint swelling, arthralgia Skin: denies: rash, lesions Neurological: headache. denies: weakness, paresthesias Psychiatric: denies: anxiety, depression Hematological/Lymphatic: denies: easy bleeding, easy bruising ED Past Medical Hx - Past Medical History Previous Medical History?: No Hx Hypertension: No Hx Congestive Heart Failure: No Hx Diabetes: No Hx Deep Vein Thrombosis: No Hx Renal Disease: No Hx Sickle Cell Disease: No Hx Seizures: No Hx Asthma: No Hx COPD: No Hx HIV: No - Surgical History Past Surgical History?: Yes Additional Surgical History: - Social History Smoking Status: Never Smoker Substance Use Type: None - Medications Home Medications: Home Medications Medication Instructions Recorded Confirmed Last Taken Type Ferrous Sulfate [Feosol 325 MG tab] 325 mg PO BID #30 tablet 08/16/18 Unknown Rx Ibuprofen [Motrin] 600 mg PO Q8H PRN #30 tablet 08/16/18 Unknown Rx oxyCODONE /ACETAMINOPHEN [Percocet 1 tab PO Q6HR PRN #30 tablet 08/16/18 Unknown Rx 5/325] cephALEXin [Keflex] 500 mg PO Q6HR #40 capsule 08/30/18 Unknown Rx Amoxicillin [Trimox CAP] 500 mg PO Q8H #30 capsule 09/28/18 Unknown Rx Butalb/Acetamin/Caff 50-325-40 1 tab PO Q6HR PRN #15 tab 09/28/18 Unknown Rx [Fioricet 50-325-40] Ketorolac [Toradol] 10 mg PO Q8H PRN #20 tablet 09/28/18 Unknown Rx Promethazine [Phenergan] 25 mg PO Q6HR PRN #20 tab 09/28/18 Unknown Rx ED Physical Exam - General Limitations: No Limitations General appearance: alert, in no apparent distress - Head Head exam: Present: atraumatic, normocephalic, normal inspection - Eye Eye exam: Present: normal appearance, PERRL, EOMI Pupils: Present: normal accommodation - ENT ENT exam: Present: normal exam, normal orophraynx, mucous membranes moist, TM's normal bilaterally, normal external ear exam, other (Palpable frontal sinus tenderness) - Neck Neck exam: Present: normal inspection. Absent: tenderness, lymphadenopathy - Respiratory Respiratory exam: Present: normal lung sounds bilaterally. Absent: respiratory distress, wheezes, rales, rhonchi, chest wall tenderness, accessory muscle use, decreased breath sounds, prolonged expiratory - Cardiovascular Cardiovascular Exam: Present: regular rate, normal rhythm, normal heart sounds. Absent: systolic murmur, diastolic murmur, rubs, gallop - GI/Abdominal GI/Abdominal exam: Present: soft, normal bowel sounds. Absent: distended, tenderness, guarding, rebound, hyperactive bowel sounds, hypoactive bowel sounds, organomegaly - Extremities Exam Extremities exam: Present: normal inspection, full ROM, normal capillary refill - Back Exam Back exam: Present: normal inspection, full ROM. Absent: tenderness, CVA tenderness (L), muscle spasm, paraspinal tenderness - Neurological Exam Neurological exam: Present: alert, oriented X3, CN II-XII intact, normal gait - Psychiatric Psychiatric exam: Present: normal affect, normal mood - Skin Skin exam: Present: warm, dry, intact, normal color. Absent: rash ED Course - Reevaluation(s) Reevaluation #1: 09/28/18 06:27 Patient is alert and oriented 3 and is not in distress but in pain. Patient was treated for pain in the ED and on reevaluation, patient's pain is well controlled with medications. Patient is discharged home on medications and advised to follow up with her primary care physician in 5-7 days for reevaluation or return to the ED immediately if symptoms get worse. ED Medical Decision Making - Medical Decision Making Patient is alert and oriented 3 and is not in distress but in pain. Patient was treated for pain in the ED and on reevaluation, patient's pain is well controlled with medications. Patient is discharged home on medications and advised to follow up with her primary care physician in 5-7 days for reevaluation or return to the ED immediately if symptoms get worse. - Differential Diagnosis sinus headache, frontal sinusitis; chronic migraine headache Critical care attestation.: If time is entered above; I have spent that time in minutes in the direct care of this critically ill patient, excluding procedure time. ED Disposition Clinical Impression: Sinus headache Headache, chronic migraine without aura Qualifiers: Status migrainosus presence: without status migrainosus Intractability: not intractable Qualified Code(s): G43.709 - Chronic migraine without aura, not intractable, without status migrainosus Acute frontal sinusitis Qualifiers: Recurrence: non-recurrent Qualified Code(s): J01.10 - Acute frontal sinusitis, unspecified Disposition: - TO HOME OR SELFCARE Is pt being admited?: No Does the pt Need Aspirin: No Condition: Stable Instructions: Migraine Headache (ED), Sinusitis (ED) Additional Instructions: Take medications, drink plenty of fluids and follow up with your primary care physician in 5-7 days for reevaluation. Return to the ED immediately if symptoms get worse. Prescriptions: Butalb/Acetamin/Caff 50-325-40 [Fioricet 50-325-40] 1 tab PO Q6HR PRN #15 tab PRN Reason: Headache Promethazine [Phenergan] 25 mg PO Q6HR PRN #20 tab PRN Reason: Nausea Ketorolac [Toradol] 10 mg PO Q8H PRN #20 tablet PRN Reason: Pain Amoxicillin [Trimox CAP] 500 mg PO Q8H #30 capsule Referrals: PRATIBHA CANAS MD [Primary Care Provider] - 3-5 Days Time of Disposition: 06:22 Print Language: ROMANSH
== END 2018-09-28 06:55 | disposition home or self-care (01) ==
LOC: ED 04:51
DX: G43.709 Chronic migraine without aura, not intractable, without status migrainosus (principal); J01.10 Acute frontal sinusitis, unspecified; Z91.040 Latex allergy status; Z79.1 Long term (current) use of non-steroidal anti-inflammatories (NSAID); Z79.899 Other long term (current) drug therapy
CPT/HCPCS: 96372; 99282; J1885; Q0162